=== PATIENT | female | born 1950 | race African-American/Black ===

== ENCOUNTER 2020-05-23 22:52 | Inpatient (IN) | payer MEDICARE ==
[~2020-05-23] VITALS: Ht 160 cm; Wt 115.7 kg
[2020-05-23] MEDS ORDERED: SODIUM CHLORIDE 0.9% 1,000 ML IV ONE (23:28)
[2020-05-23] MEDS ORDERED: INSULIN REGULAR (HUMULIN R) UD 100 UNITS/ML SYR SUBCUT ONE (23:30)
[2020-05-23] MEDS ORDERED: INSULIN REGULAR (HUMULIN R) 300UNITS/3ML SUBCUT STA (23:44)
[2020-05-24] VITALS (24 sets, daily range): BP systolic 128–157; BP diastolic 54–88
[2020-05-24 00:12] LABS: BG BASE EXCESS -2.9 mmol/L (-2.0-2.0); BG CARBOXYHEMOGLOBIN 1.2 % (0.5-1.5); BG FRACTION INSPIRED OXYGEN 100; BG HCO3 ACT 21.6 mmol/L (22.0-26.0); BG METHEMOGLOBIN 0.3 % (0.0-1.5); BG OXYGEN SATURATION 79.7 % (92.0-98.5); BG OXYHEMOGLOBIN 78.5 % (94.0-97.0); BG PCO2 36.9 mmHg (35.0-45.0); BG PH 7.386 (7.350-7.450); BG PO2 45.9 mmHg (75.0-100.0); BG SAMPLE SITE LEFT RADIAL; BG TOTAL HEMOGLOBIN 13.5 g/dL (12.0-18.0); BG VENT MODE MASK - NRB
[2020-05-24 00:29] LABS: BASOPHILS % 0.5 % (0.0-2.0); EOSINOPHILS % 0.1 % (0.0-5.0); HEMATOCRIT. 41.2 % (36.0-48.0); LYMPHOCYTES % 10.7 % (20.0-50.0); MEAN CORPUSCULAR HEMOGLOBIN 25.5 pg (28.0-32.0); MEAN CORPUSCULAR VOLUME 80.4 fL (81.0-99.0); MEAN PLATELET VOLUME 9.8 fl (7.4-10.4); MONOCYTES % 7.2 % (2.0-8.0); NEUTROPHILS % 81.5 % (40.0-76.0); PLATELET 110 x1000/uL (130-400); RED BLOOD CELL COUNT 5.12 mill/uL (4.2-5.4); RED CELL DISTRIBUTION WIDTH 15.3 % (11.6-14.6)
[2020-05-24 00:34] LABS: CHLORIDE 108 mEq/L (98-107)
[2020-05-24 00:49] LABS: PARTIAL THROMBOPLASTIN TIME 25.8 sec (23.4-31.0); PROTHROMBIN TIME 10.5 sec (9.6-11.0)
[2020-05-24] MEDS ORDERED: PIPERACILLIN/TAZ 3.375G PREMIX 50 ML IV ONE (01:15)
[2020-05-24] MEDS ORDERED: DEXAMETHASONE 4MG/ML 1ML VIAL IV ONE (01:15)
[2020-05-24] MEDS ORDERED: VANCOMYCIN 1 G PREMIX 200 ML IV ONE (01:15)
[2020-05-24] MEDS ORDERED: INSULIN REGULAR (HUMULIN R) UD 100 UNITS/ML SYR SUBCUT ONE (01:15)
[2020-05-24] MEDS ORDERED: ENOXAPARIN 150MG/ML SYR SUBCUT ONE (01:15)
[2020-05-24 01:32] LABS: BG BASE EXCESS -3.7 mmol/L (-2.0-2.0); BG BILEVEL POS AIRWAY PRESSURE 18/5; BG CARBOXYHEMOGLOBIN 1.1 % (0.5-1.5); BG DEOXYHEMOGLOBIN 14.5 % (0.0-5.0); BG FRACTION INSPIRED OXYGEN 100; BG HCO3 ACT 20.8 mmol/L (22.0-26.0); BG METHEMOGLOBIN 0.3 % (0.0-1.5); BG OXYGEN SATURATION 85.3 % (92.0-98.5); BG OXYHEMOGLOBIN 84.1 % (94.0-97.0); BG PO2 52.8 mmHg (75.0-100.0); BG SAMPLE SITE LEFT RADIAL; BG VENT MODE MASK - BIPAP; BG VENT RATE 14 set
[2020-05-24] MEDS ORDERED: INSULIN REGULAR (HUMULIN R) 300UNITS/3ML SUBCUT STA (01:33)
[2020-05-24] MEDS ORDERED: ONDANSETRON HCL 4MG/2ML INJ IV PRN (02:30)
[2020-05-24] MEDS ORDERED: ACETAMINOPHEN 325MG TABLET PO PRN (02:30)
[2020-05-24] MEDS ORDERED: FUROSEMIDE 40MG/4ML VIAL IVP NR (04:00)
[2020-05-24] MEDS ORDERED: AZITHROMYCIN 500 MG in DEXT 5% WATER 250 ML IV SCH (04:00)
[2020-05-24] MEDS: SODIUM CHLORIDE 0.9% INJ 3ML FLUSH IVF SCH ×3 (07:30→22:33)
[2020-05-24] MEDS: INSULIN LISPRO 100 UNITS/ML SUBCUT SCH ×4 (07:42→21:00)
[2020-05-24] MEDS: BLOOD SUGAR DIAGNOSTIC STRIP TEST SCH ×4 (07:42→21:00)
[2020-05-24] MEDS ORDERED: CEFTRIAXONE 1 G PREMIX 50 ML IV SCH (08:00)
[2020-05-24] MEDS ORDERED: INSULIN GLARGINE UD 100 UNITS/ML SYR SUBCUT SCH ×3 (10:00→22:00)
[2020-05-24] MEDS: FAMOTIDINE 20MG/2ML VIAL IV SCH ×2 (10:10→20:32)
[2020-05-24] MEDS ORDERED: IOHEXOL-350 100 ML BOTTLE ONE (11:32)
[2020-05-24] MEDS ORDERED: ENOXAPARIN 120MG/0.8ML SYR SUBCUT SCH (14:00)
[2020-05-24] MEDS: ALBUTEROL 6.7GM HFA INHALER ORI SCH ×3 (16:30→21:30)
[2020-05-24] MEDS ORDERED: ENOXAPARIN 150MG/ML SYR SUBCUT SCH (18:00)
[2020-05-24] MEDS ORDERED: DOPAMINE 800MG PREMIX (DOUBLE) 250 ML IV PRN (21:30)
[2020-05-25] VITALS (95 sets, daily range): BP systolic 79–185; BP diastolic 27–76
[2020-05-25] MEDS: ENOXAPARIN 120MG/0.8ML SYR SUBCUT SCH ×3 (00:51→21:40)
[2020-05-25] MEDS: ALBUTEROL 6.7GM HFA INHALER ORI SCH ×4 (04:30→20:50)
[2020-05-25] MEDS: SODIUM CHLORIDE 0.9% INJ 3ML FLUSH IVF SCH ×3 (05:12→21:01)
[2020-05-25] MEDS: BLOOD SUGAR DIAGNOSTIC STRIP TEST SCH ×4 (05:51→21:21)
[2020-05-25] MEDS: INSULIN LISPRO 100 UNITS/ML SUBCUT SCH ×4 (06:09→21:42)
[2020-05-25] MEDS: AZITHROMYCIN 500 MG in DEXT 5% WATER 250 ML IV SCH (08:13)
[2020-05-25] MEDS: FAMOTIDINE 20MG/2ML VIAL IV SCH ×2 (08:13→21:39)
[2020-05-25] MEDS: DEXAMETHASONE 4MG TABLET PO SCH (08:14)
[2020-05-25] MEDS: CEFTRIAXONE 1 G PREMIX 50 ML IV SCH (08:14)
[2020-05-25] MEDS ORDERED: ENOXAPARIN 40MG/0.4ML SYR SUBCUT SCH (09:00)
[2020-05-25] MEDS ORDERED: INSULIN GLARGINE UD 100 UNITS/ML SYR SUBCUT SCH ×4 (10:00→22:00)
[2020-05-25 10:45] LABS: PHOSPHORUS 1.9 mg/dL (2.5-4.9)
[2020-05-25 10:48] LABS: BASOPHILS % 0.3 % (0.0-2.0); LYMPHOCYTES % 8.9 % (20.0-50.0); MEAN CORPUSCULAR HEMOGLOBIN 25.3 pg (28.0-32.0); MEAN CORPUSCULAR VOLUME 80.2 fL (81.0-99.0); NEUTROPHILS % 84.8 % (40.0-76.0); PLATELET 157 x1000/uL (130-400); RED BLOOD CELL COUNT 5.96 mill/uL (4.2-5.4)
[2020-05-25 10:49] LABS: BG CARBOXYHEMOGLOBIN 0.6 % (0.5-1.5); BG DEOXYHEMOGLOBIN 8.3 % (0.0-5.0); BG FRACTION INSPIRED OXYGEN 100; BG HCO3 ACT 19.9 mmol/L (22.0-26.0); BG METHEMOGLOBIN 0.3 % (0.0-1.5); BG OXYGEN SATURATION 91.6 % (92.0-98.5); BG OXYHEMOGLOBIN 90.8 % (94.0-97.0); BG PCO2 29.5 mmHg (35.0-45.0); BG PH 7.446 (7.350-7.450); BG PO2 63.8 mmHg (75.0-100.0); BG SAMPLE SITE RIGHT RADIAL; BG TOTAL HEMOGLOBIN 13.6 g/dL (12.0-18.0); BG VENT MODE MASK - NRB
[2020-05-25 10:57] LABS: HEMATOCRIT. 47.8 % (36.0-48.0); HEMOGLOBIN. 15.1 g/dL (12.0-16.0)
[2020-05-25 10:58] LABS: CHLORIDE 113 mEq/L (98-107)
[2020-05-25] MEDS ORDERED: REMDESIVIR 200 MG in SODIUM CHLORIDE 0.9% 250 ML IV NR (15:00)
[2020-05-25] MEDS ORDERED: ENOXAPARIN 120MG/0.8ML SYR SUBCUT SCH (16:18)
[2020-05-25] MEDS ORDERED: AMLO10TA80 MT (17:13)
[2020-05-25] MEDS ORDERED: CARV3.1242 MT (17:15)
[2020-05-25] MEDS ORDERED: LISI40TA4 MT (17:16)
[2020-05-25] MEDS ORDERED: HYDR-4134 MT (17:17)
[2020-05-25] MEDS ORDERED: INSU100V3 SUBCUT ×2 (17:44→17:45)
[2020-05-25] MEDS ORDERED: POTASSIUM PHOS,M-BASIC-D-BASIC 20 MMOL in DEXT 5% WATER 243.3333 ML IV SCH (21:00)
[2020-05-26] VITALS (96 sets, daily range): BP systolic 95–166; BP diastolic 16–96
[2020-05-26] MEDS: ALBUTEROL 6.7GM HFA INHALER ORI SCH ×4 (00:55→17:37)
[2020-05-26 05:20] LABS: BASOPHILS % 0.8 % (0.0-2.0); HEMATOCRIT. 44.8 % (36.0-48.0); LYMPHOCYTES % 7.6 % (20.0-50.0); MEAN CORPUSCULAR VOLUME 79.8 fL (81.0-99.0); MEAN PLATELET VOLUME 10.1 fl (7.4-10.4); MONOCYTES % 7.8 % (2.0-8.0); NEUTROPHILS % 83.8 % (40.0-76.0); PLATELET 154 x1000/uL (130-400); RED BLOOD CELL COUNT 5.62 mill/uL (4.2-5.4); RED CELL DISTRIBUTION WIDTH 14.9 % (11.6-14.6)
[2020-05-26] MEDS: SODIUM CHLORIDE 0.9% INJ 3ML FLUSH IVF SCH ×3 (05:27→22:20)
[2020-05-26 05:29] LABS: CHLORIDE 114 mEq/L (98-107)
[2020-05-26 05:37] LABS: PHOSPHORUS 2.9 mg/dL (2.5-4.9)
[2020-05-26] MEDS: BLOOD SUGAR DIAGNOSTIC STRIP TEST SCH ×4 (05:56→21:47)
[2020-05-26] MEDS: INSULIN LISPRO 100 UNITS/ML SUBCUT SCH ×4 (06:14→21:53)
[2020-05-26] MEDS ORDERED: LIDOCAINE HCL 1% 20ML VIAL (Pyxis) INJ ONE (08:01)
[2020-05-26] MEDS: FAMOTIDINE 20MG/2ML VIAL IV SCH ×2 (08:10→21:12)
[2020-05-26] MEDS: DEXAMETHASONE 4MG TABLET PO SCH (08:10)
[2020-05-26] MEDS: AZITHROMYCIN 500 MG in DEXT 5% WATER 250 ML IV SCH (08:10)
[2020-05-26] MEDS: CEFTRIAXONE 1 G PREMIX 50 ML IV SCH (08:11)
[2020-05-26] MEDS: ENOXAPARIN 120MG/0.8ML SYR SUBCUT SCH ×2 (08:12→21:13)
[2020-05-26] MEDS: INSULIN GLARGINE UD 100 UNITS/ML SYR SUBCUT SCH ×2 (10:45→21:54)
[2020-05-26] MEDS: REMDESIVIR 100 MG in SODIUM CHLORIDE 0.9% 250 ML IV SCH (14:05)
[2020-05-27] VITALS (53 sets, daily range): BP systolic 80–157; BP diastolic 34–123
[2020-05-27] MEDS: ALBUTEROL 6.7GM HFA INHALER ORI SCH ×6 (01:30→19:00)
[2020-05-27 05:57] LABS: BASOPHILS % 0.2 % (0.0-2.0); HEMATOCRIT. 46.2 % (36.0-48.0); HEMOGLOBIN. 14.5 g/dL (12.0-16.0); LYMPHOCYTES % 7.6 % (20.0-50.0); MEAN CORPUSCULAR HEMOGLOBIN 25.1 pg (28.0-32.0); MEAN CORPUSCULAR VOLUME 80.1 fL (81.0-99.0); MEAN PLATELET VOLUME 9.9 fl (7.4-10.4); MONOCYTES % 10.2 % (2.0-8.0); PLATELET 161 x1000/uL (130-400); RED BLOOD CELL COUNT 5.77 mill/uL (4.2-5.4); RED CELL DISTRIBUTION WIDTH 15.1 % (11.6-14.6)
[2020-05-27 06:04] LABS: CHLORIDE 111 mEq/L (98-107)
[2020-05-27] MEDS: BLOOD SUGAR DIAGNOSTIC STRIP TEST SCH ×4 (06:05→20:51)
[2020-05-27] MEDS: SODIUM CHLORIDE 0.9% INJ 3ML FLUSH IVF SCH ×3 (06:05→20:51)
[2020-05-27] MEDS: INSULIN LISPRO 100 UNITS/ML SUBCUT SCH ×5 (06:10→21:42)
[2020-05-27] MEDS: AZITHROMYCIN 500 MG in DEXT 5% WATER 250 ML IV SCH (08:12)
[2020-05-27] MEDS: DEXAMETHASONE 4MG TABLET PO SCH (08:13)
[2020-05-27] MEDS: FAMOTIDINE 20MG/2ML VIAL IV SCH ×2 (08:13→20:50)
[2020-05-27] MEDS: CEFTRIAXONE 1 G PREMIX 50 ML IV SCH (08:13)
[2020-05-27] MEDS: ENOXAPARIN 120MG/0.8ML SYR SUBCUT SCH ×2 (08:14→20:51)
[2020-05-27] MEDS: INSULIN GLARGINE UD 100 UNITS/ML SYR SUBCUT SCH ×2 (10:29→21:42)
[2020-05-27] MEDS ORDERED: DIPHENHYDRAMINE 50MG/ML VIAL IV PRN (16:45)
[2020-05-27] MEDS: ACETAMINOPHEN 325MG TABLET PO PRN (17:08)
[2020-05-27] MEDS: REMDESIVIR 100 MG in SODIUM CHLORIDE 0.9% 250 ML IV SCH (20:50)
[2020-05-28] VITALS: BP 109/79
[2020-05-28] MEDS: ALBUTEROL 6.7GM HFA INHALER ORI SCH ×6 (00:14→23:05)
[2020-05-28 04:00] VITALS: BP 143/61
[2020-05-28] MEDS: SODIUM CHLORIDE 0.9% INJ 3ML FLUSH IVF SCH ×3 (06:01→21:25)
[2020-05-28] MEDS: DEXTROSE 50% WATER 50ML SYRINGE IV PRN (06:16)
[2020-05-28 06:29] LABS: HEMATOCRIT. 44.2 % (36.0-48.0); MEAN CORPUSCULAR VOLUME 79.2 fL (81.0-99.0); MEAN PLATELET VOLUME 9.8 fl (7.4-10.4); PLATELET 129 x1000/uL (130-400); RED BLOOD CELL COUNT 5.57 mill/uL (4.2-5.4); RED CELL DISTRIBUTION WIDTH 14.8 % (11.6-14.6)
[2020-05-28 06:36] LABS: CHLORIDE 113 mEq/L (98-107)
[2020-05-28] MEDS: BLOOD SUGAR DIAGNOSTIC STRIP TEST SCH ×4 (07:40→21:26)
[2020-05-28 08:00] VITALS: BP 97/64
[2020-05-28] MEDS ORDERED: CEFTRIAXONE 1,000 MG in DEXTROSE 5% WATER 50 ML IV SCH (09:00)
[2020-05-28] MEDS: AZITHROMYCIN 500 MG in DEXT 5% WATER 250 ML IV SCH (09:20)
[2020-05-28] MEDS: INSULIN LISPRO 100 UNITS/ML SUBCUT SCH ×4 (09:23→21:25)
[2020-05-28] MEDS: FAMOTIDINE 20MG/2ML VIAL IV SCH (09:24)
[2020-05-28] MEDS: DEXAMETHASONE 4MG TABLET PO SCH (09:24)
[2020-05-28] MEDS: ENOXAPARIN 120MG/0.8ML SYR SUBCUT SCH ×2 (09:25→21:24)
[2020-05-28] MEDS: INSULIN GLARGINE UD 100 UNITS/ML SYR SUBCUT SCH ×2 (11:35→21:25)
[2020-05-28 12:00] VITALS: BP 148/62
[2020-05-28 13:35] LABS: BG BASE EXCESS 0.2 mmol/L (-2.0-2.0); BG CARBOXYHEMOGLOBIN 0.9 % (0.5-1.5); BG DEOXYHEMOGLOBIN 11.4 % (0.0-5.0); BG FRACTION INSPIRED OXYGEN 100; BG HCO3 ACT 22.2 mmol/L (22.0-26.0); BG METHEMOGLOBIN 0.3 % (0.0-1.5); BG OXYGEN SATURATION 88.5 % (92.0-98.5); BG OXYHEMOGLOBIN 87.4 % (94.0-97.0); BG PCO2 28.8 mmHg (35.0-45.0); BG PH 7.504 (7.350-7.450); BG PO2 53.4 mmHg (75.0-100.0); BG SAMPLE SITE RIGHT RADIAL; BG TOTAL HEMOGLOBIN 13.9 g/dL (12.0-18.0); BG VENT MODE MASK - NRB
[2020-05-28] MEDS: REMDESIVIR 100 MG in SODIUM CHLORIDE 0.9% 250 ML IV SCH (14:15)
[2020-05-28 14:18] LABS: PLATELET ESTIMATE SLIGHTLY DECREASED
[2020-05-28 16:00] VITALS: BP 141/65
[2020-05-28 20:00] VITALS: BP 138/53
[2020-05-28] MEDS: FAMOTIDINE 20MG TABLET PO SCH (21:24)
[2020-05-29] VITALS (60 sets, daily range): BP systolic 55–194; BP diastolic 23–140
[2020-05-29] MEDS: ALBUTEROL 6.7GM HFA INHALER ORI SCH ×5 (00:20→20:10)
[2020-05-29] MEDS: SODIUM CHLORIDE 0.9% INJ 3ML FLUSH IVF SCH ×3 (06:24→22:40)
[2020-05-29] MEDS: DEXTROSE 50% WATER 50ML SYRINGE IV PRN (06:32)
[2020-05-29] MEDS: BLOOD SUGAR DIAGNOSTIC STRIP TEST SCH ×4 (07:31→21:00)
[2020-05-29] MEDS: DEXAMETHASONE 4MG TABLET PO SCH (09:27)
[2020-05-29] MEDS: FAMOTIDINE 20MG TABLET PO SCH ×2 (09:27→22:39)
[2020-05-29] MEDS: INSULIN LISPRO 100 UNITS/ML SUBCUT SCH ×4 (09:27→21:00)
[2020-05-29] MEDS: PROPOFOL 10MG/ML 100ML 100 ML IV PRN ×3 (11:33→15:51)
[2020-05-29] MEDS: INSULIN GLARGINE UD 100 UNITS/ML SYR SUBCUT SCH ×2 (11:49→22:49)
[2020-05-29] MEDS ORDERED: NOREPINEPHRINE 16 MG in DEXT 5% WATER 234 ML IV PRN (12:00)
[2020-05-29] MEDS: ENOXAPARIN 120MG/0.8ML SYR SUBCUT SCH ×2 (12:09→22:48)
[2020-05-29] MEDS: NOREPINEPHRINE 32 MG in DEXT 5% WATER 468 ML IV PRN (12:16)
[2020-05-29 12:34] LABS: BG BASE EXCESS -2.6 mmol/L (-2.0-2.0); BG CARBOXYHEMOGLOBIN 0.8 % (0.5-1.5); BG FRACTION INSPIRED OXYGEN 100; BG HCO3 ACT 22.6 mmol/L (22.0-26.0); BG OXYHEMOGLOBIN 98.2 % (94.0-97.0); BG PCO2 40.7 mmHg (35.0-45.0); BG PH 7.362 (7.350-7.450); BG PO2 290.6 mmHg (75.0-100.0); BG SAMPLE SITE RIGHT RADIAL; BG TIDAL VOLUME(mL) 500 mL; BG TOTAL HEMOGLOBIN 12.9 g/dL (12.0-18.0); BG VENT MODE VENT - A/C; BG VENT RATE 16 set
[2020-05-29] MEDS: REMDESIVIR 100 MG in SODIUM CHLORIDE 0.9% 250 ML IV SCH (13:59)
[2020-05-29] MEDS: CEFEPIME 1,000 MG in DEXTROSE 5% WATER 50 ML IV SCH (15:07)
[2020-05-29] MEDS ORDERED: VANCOMYCIN 2,000 MG in DEXT 5% WATER 500 ML IV NR (16:00)
[2020-05-29] MEDS: FENTANYL CITRATE/PF 1,000 MCG in SODIUM CHLORIDE 0.9% 80 ML IV PRN (16:32)
[2020-05-29] MEDS: MIDAZOLAM HCL 100 MG in DEXT 5% WATER 80 ML IV PRN (16:33)
[2020-05-30] VITALS (95 sets, daily range): BP systolic 84–187; BP diastolic 51–89
[2020-05-30] MEDS: CEFEPIME 1,000 MG in DEXTROSE 5% WATER 50 ML IV SCH ×2 (03:00→15:04)
[2020-05-30] MEDS: FENTANYL CITRATE/PF 1,000 MCG in SODIUM CHLORIDE 0.9% 80 ML IV PRN (05:09)
[2020-05-30] MEDS: SODIUM CHLORIDE 0.9% INJ 3ML FLUSH IVF SCH ×3 (05:18→22:14)
[2020-05-30 05:57] LABS: CHLORIDE 109 mEq/L (98-107)
[2020-05-30] MEDS: MIDAZOLAM HCL 100 MG in DEXT 5% WATER 80 ML IV PRN (06:00)
[2020-05-30] MEDS ORDERED: VANCOMYCIN 1250MG in DEXTROSE 5% WATER 250ML IV SCH (06:00)
[2020-05-30 06:03] LABS: HEMATOCRIT. 39.2 % (36.0-48.0); HEMOGLOBIN. 12.5 g/dL (12.0-16.0); MEAN CORPUSCULAR HEMOGLOBIN 25.4 pg (28.0-32.0); MEAN CORPUSCULAR VOLUME 79.4 fL (81.0-99.0); MEAN PLATELET VOLUME 9.7 fl (7.4-10.4); PLATELET 107 x1000/uL (130-400); RED BLOOD CELL COUNT 4.93 mill/uL (4.2-5.4); RED CELL DISTRIBUTION WIDTH 14.8 % (11.6-14.6)
[2020-05-30] MEDS: BLOOD SUGAR DIAGNOSTIC STRIP TEST SCH ×3 (06:09→16:30)
[2020-05-30] MEDS: INSULIN LISPRO 100 UNITS/ML SUBCUT SCH ×3 (06:14→17:45)
[2020-05-30] MEDS: ALBUTEROL 6.7GM HFA INHALER ORI SCH (08:35)
[2020-05-30] MEDS: ENOXAPARIN 120MG/0.8ML SYR SUBCUT SCH ×2 (08:50→22:13)
[2020-05-30] MEDS: DEXAMETHASONE 4MG TABLET PO SCH (08:50)
[2020-05-30] MEDS: FAMOTIDINE 20MG TABLET PO SCH ×2 (08:51→22:13)
[2020-05-30] MEDS: INSULIN GLARGINE UD 100 UNITS/ML SYR SUBCUT SCH ×2 (10:41→22:14)
[2020-05-30 10:43] LABS: BG BASE EXCESS -0.9 mmol/L (-2.0-2.0); BG CARBOXYHEMOGLOBIN 0.2 % (0.5-1.5); BG FRACTION INSPIRED OXYGEN 100; BG HCO3 ACT 23.2 mmol/L (22.0-26.0); BG METHEMOGLOBIN 0.3 % (0.0-1.5); BG OXYHEMOGLOBIN 98.5 % (94.0-97.0); BG PCO2 36.8 mmHg (35.0-45.0); BG PH 7.418 (7.350-7.450); BG PO2 370.6 mmHg (75.0-100.0); BG SAMPLE SITE RIGHT RADIAL; BG TIDAL VOLUME(mL) 500 mL; BG TOTAL HEMOGLOBIN 13.4 g/dL (12.0-18.0); BG VENT MODE VENT - A/C; BG VENT RATE 18 set
[2020-05-30] MEDS ORDERED: IPRATROPIUM/ALBUTEROL 0.5-3(2.5)MG/3ML NEB HHN PRN (11:00)
[2020-05-30 13:11] LABS: PLATELET ESTIMATE DECREASED
[2020-05-30] MEDS: IPRATROPIUM/ALBUTEROL 0.5-3(2.5)MG/3ML NEB HHN SCH ×3 (16:30→23:44)
[2020-05-30] MEDS: DOPAMINE 800MG PREMIX (DOUBLE) 250 ML IV PRN (16:58)
[2020-05-30] MEDS: VANCOMYCIN 1250MG in DEXTROSE 5% WATER 250ML IV SCH (19:16)
[2020-05-31] VITALS (87 sets, daily range): BP systolic 109–181; BP diastolic 45–84
[2020-05-31] MEDS: FENTANYL CITRATE/PF 1,000 MCG in SODIUM CHLORIDE 0.9% 80 ML IV PRN (00:13)
[2020-05-31] MEDS: MIDAZOLAM HCL 100 MG in DEXT 5% WATER 80 ML IV PRN (00:14)
[2020-05-31] MEDS: BLOOD SUGAR DIAGNOSTIC STRIP TEST SCH ×4 (00:14→17:32)
[2020-05-31] MEDS: INSULIN LISPRO 100 UNITS/ML SUBCUT SCH ×5 (00:49→23:21)
[2020-05-31] MEDS: CEFEPIME 1,000 MG in DEXTROSE 5% WATER 50 ML IV SCH ×2 (03:07→15:25)
[2020-05-31] MEDS ORDERED: ATROPINE SULFATE 1MG/10ML SYR IV ONE (03:15)
[2020-05-31 05:25] LABS: CHLORIDE 107 mEq/L (98-107); HEMATOCRIT. 41.3 % (36.0-48.0); HEMOGLOBIN. 13.3 g/dL (12.0-16.0); MEAN CORPUSCULAR HEMOGLOBIN 25.4 pg (28.0-32.0); MEAN CORPUSCULAR VOLUME 78.4 fL (81.0-99.0); MEAN PLATELET VOLUME 10.2 fl (7.4-10.4); PLATELET 112 x1000/uL (130-400); RED BLOOD CELL COUNT 5.26 mill/uL (4.2-5.4); RED CELL DISTRIBUTION WIDTH 14.7 % (11.6-14.6)
[2020-05-31 05:41] LABS: VANCOMYCIN TROUGH 20.4 ug/mL (5.0-10.0)
[2020-05-31] MEDS: SODIUM CHLORIDE 0.9% INJ 3ML FLUSH IVF SCH ×3 (06:06→21:01)
[2020-05-31] MEDS: VANCOMYCIN 1250MG in DEXTROSE 5% WATER 250ML IV SCH (06:29)
[2020-05-31 08:47] LABS: BG BASE EXCESS -0.5 mmol/L (-2.0-2.0); BG CARBOXYHEMOGLOBIN 0.4 % (0.5-1.5); BG DEOXYHEMOGLOBIN 1.6 % (0.0-5.0); BG FRACTION INSPIRED OXYGEN 60; BG HCO3 ACT 22.7 mmol/L (22.0-26.0); BG METHEMOGLOBIN 0.3 % (0.0-1.5); BG OXYGEN SATURATION 98.4 % (92.0-98.5); BG OXYHEMOGLOBIN 97.7 % (94.0-97.0); BG PCO2 33.4 mmHg (35.0-45.0); BG PH 7.451 (7.350-7.450); BG PO2 144.7 mmHg (75.0-100.0); BG SAMPLE SITE RIGHT RADIAL; BG TIDAL VOLUME(mL) 500 mL; BG TOTAL HEMOGLOBIN 13.9 g/dL (12.0-18.0); BG VENT MODE VENT - A/C; BG VENT RATE 18 set
[2020-05-31] MEDS: DEXAMETHASONE 10 MG/ML VIAL IV SCH (08:58)
[2020-05-31] MEDS: FAMOTIDINE 20MG TABLET PO SCH ×2 (08:59→21:01)
[2020-05-31] MEDS: ENOXAPARIN 120MG/0.8ML SYR SUBCUT SCH ×2 (08:59→21:02)
[2020-05-31] MEDS: IPRATROPIUM/ALBUTEROL 0.5-3(2.5)MG/3ML NEB HHN SCH ×4 (09:29→20:50)
[2020-05-31] MEDS: INSULIN GLARGINE UD 100 UNITS/ML SYR SUBCUT SCH ×2 (10:10→21:01)
[2020-05-31 14:01] LABS: PLATELET ESTIMATE DECREASED
[2020-05-31] MEDS: AMLODIPINE 2.5MG TABLET NG SCH ×2 (15:25→21:01)
[2020-05-31] MEDS: VANCOMYCIN 1 G PREMIX 200 ML IV SCH (17:51)
[2020-05-31 20:42] LABS: T4 FREE 1.15 ng/dL (0.76-1.46)
[2020-06-01] VITALS (97 sets, daily range): BP systolic 97–175; BP diastolic 28–77
[2020-06-01] MEDS: BLOOD SUGAR DIAGNOSTIC STRIP TEST SCH ×5 (00:17→23:15)
[2020-06-01] MEDS: FENTANYL CITRATE/PF 1,000 MCG in SODIUM CHLORIDE 0.9% 80 ML IV PRN ×2 (00:18→19:47)
[2020-06-01] MEDS: IPRATROPIUM/ALBUTEROL 0.5-3(2.5)MG/3ML NEB HHN SCH ×6 (00:25→20:31)
[2020-06-01] MEDS: CEFEPIME 1,000 MG in DEXTROSE 5% WATER 50 ML IV SCH ×2 (02:08→15:37)
[2020-06-01] MEDS: VANCOMYCIN 1 G PREMIX 200 ML IV SCH ×2 (05:00→17:46)
[2020-06-01] MEDS: INSULIN LISPRO 100 UNITS/ML SUBCUT SCH ×4 (05:01→23:15)
[2020-06-01] MEDS: SODIUM CHLORIDE 0.9% INJ 3ML FLUSH IVF SCH ×3 (05:01→21:41)
[2020-06-01] MEDS: FAMOTIDINE 20MG TABLET PO SCH ×2 (08:28→21:42)
[2020-06-01] MEDS: DEXAMETHASONE 10 MG/ML VIAL IV SCH (08:29)
[2020-06-01] MEDS: AMLODIPINE 2.5MG TABLET NG SCH ×2 (08:29→21:41)
[2020-06-01] MEDS: ENOXAPARIN 120MG/0.8ML SYR SUBCUT SCH ×2 (08:29→21:41)
[2020-06-01 09:31] LABS: BG BASE EXCESS -4.6 mmol/L (-2.0-2.0); BG CARBOXYHEMOGLOBIN 0.6 % (0.5-1.5); BG DEOXYHEMOGLOBIN 5.5 % (0.0-5.0); BG FRACTION INSPIRED OXYGEN 60; BG HCO3 ACT 21.1 mmol/L (22.0-26.0); BG OXYGEN SATURATION 94.5 % (92.0-98.5); BG OXYHEMOGLOBIN 93.9 % (94.0-97.0); BG PCO2 41.2 mmHg (35.0-45.0); BG PH 7.328 (7.350-7.450); BG SAMPLE SITE RIGHT RADIAL; BG TIDAL VOLUME(mL) 500 mL; BG VENT MODE VENT - A/C; BG VENT RATE 12 set
[2020-06-01] MEDS: LORAZEPAM 2MG/ML CPJ IV PRN ×3 (11:26→22:18)
[2020-06-01] MEDS: INSULIN GLARGINE UD 100 UNITS/ML SYR SUBCUT SCH ×2 (11:28→21:41)
[2020-06-01] MEDS: DOPAMINE 800MG PREMIX (DOUBLE) 250 ML IV PRN (21:58)
[2020-06-02] VITALS (89 sets, daily range): BP systolic 113–176; BP diastolic 42–101
[2020-06-02] MEDS: IPRATROPIUM/ALBUTEROL 0.5-3(2.5)MG/3ML NEB HHN SCH ×6 (00:25→21:06)
[2020-06-02] MEDS: CEFEPIME 1,000 MG in DEXTROSE 5% WATER 50 ML IV SCH ×2 (02:07→15:55)
[2020-06-02] MEDS: LORAZEPAM 2MG/ML CPJ IV PRN ×4 (04:31→20:20)
[2020-06-02] MEDS: SODIUM CHLORIDE 0.9% INJ 3ML FLUSH IVF SCH ×3 (05:25→20:21)
[2020-06-02] MEDS: VANCOMYCIN 1 G PREMIX 200 ML IV SCH (05:25)
[2020-06-02] MEDS: BLOOD SUGAR DIAGNOSTIC STRIP TEST SCH ×4 (05:25→23:45)
[2020-06-02] MEDS: INSULIN LISPRO 100 UNITS/ML SUBCUT SCH ×4 (05:28→23:49)
[2020-06-02 06:09] LABS: CHLORIDE 107 mEq/L (98-107)
[2020-06-02] MEDS: DEXAMETHASONE 10 MG/ML VIAL IV SCH (08:40)
[2020-06-02] MEDS: FAMOTIDINE 20MG TABLET PO SCH ×2 (08:41→20:20)
[2020-06-02] MEDS: AMLODIPINE 2.5MG TABLET NG SCH ×2 (08:41→20:20)
[2020-06-02 09:14] LABS: BG BASE EXCESS -1.3 mmol/L (-2.0-2.0); BG CARBOXYHEMOGLOBIN 0.3 % (0.5-1.5); BG DEOXYHEMOGLOBIN 2.1 % (0.0-5.0); BG FRACTION INSPIRED OXYGEN 60; BG HCO3 ACT 22.7 mmol/L (22.0-26.0); BG METHEMOGLOBIN 0.3 % (0.0-1.5); BG OXYGEN SATURATION 97.9 % (92.0-98.5); BG OXYHEMOGLOBIN 97.3 % (94.0-97.0); BG PCO2 36.1 mmHg (35.0-45.0); BG PH 7.416 (7.350-7.450); BG PO2 119.4 mmHg (75.0-100.0); BG SAMPLE SITE RIGHT RADIAL; BG TIDAL VOLUME(mL) 500 mL; BG VENT MODE VENT - A/C; BG VENT RATE 18 set
[2020-06-02] MEDS: ENOXAPARIN 120MG/0.8ML SYR SUBCUT SCH ×2 (09:58→20:20)
[2020-06-02] MEDS: INSULIN GLARGINE UD 100 UNITS/ML SYR SUBCUT SCH ×2 (09:59→21:20)
[2020-06-02 10:06] LABS: HEMATOCRIT. 41.4 % (36.0-48.0); HEMOGLOBIN. 13.1 g/dL (12.0-16.0); MEAN CORPUSCULAR HEMOGLOBIN 25.1 pg (28.0-32.0); MEAN CORPUSCULAR VOLUME 79.7 fL (81.0-99.0); MEAN PLATELET VOLUME 10.6 fl (7.4-10.4); PLATELET 144 x1000/uL (130-400); RED CELL DISTRIBUTION WIDTH 15.2 % (11.6-14.6)
[2020-06-02 11:48] LABS: PLATELET ESTIMATE NORMAL
[2020-06-03] VITALS (44 sets, daily range): BP systolic 111–148; BP diastolic 40–75
[2020-06-03] MEDS: IPRATROPIUM/ALBUTEROL 0.5-3(2.5)MG/3ML NEB HHN SCH ×5 (00:33→19:50)
[2020-06-03] MEDS: LORAZEPAM 2MG/ML CPJ IV PRN ×2 (02:53→21:09)
[2020-06-03] MEDS: CEFEPIME 1,000 MG in DEXTROSE 5% WATER 50 ML IV SCH ×2 (02:53→15:00)
[2020-06-03] MEDS: FENTANYL CITRATE/PF 1,000 MCG in SODIUM CHLORIDE 0.9% 80 ML IV PRN (05:25)
[2020-06-03] MEDS: SODIUM CHLORIDE 0.9% INJ 3ML FLUSH IVF SCH ×3 (05:54→20:39)
[2020-06-03] MEDS: BLOOD SUGAR DIAGNOSTIC STRIP TEST SCH ×4 (05:54→23:16)
[2020-06-03] MEDS: INSULIN LISPRO 100 UNITS/ML SUBCUT SCH ×3 (06:07→18:00)
[2020-06-03] MEDS: FAMOTIDINE 20MG TABLET PO SCH ×2 (09:00→20:39)
[2020-06-03] MEDS: ENOXAPARIN 120MG/0.8ML SYR SUBCUT SCH ×3 (09:00→20:39)
[2020-06-03] MEDS: DEXAMETHASONE 10 MG/ML VIAL IV SCH (09:00)
[2020-06-03] MEDS: AMLODIPINE 2.5MG TABLET NG SCH ×2 (09:00→20:39)
[2020-06-03] MEDS: INSULIN GLARGINE UD 100 UNITS/ML SYR SUBCUT SCH ×2 (10:00→22:00)
[2020-06-03 17:24] LABS: HEMOGLOBIN. 11.7 g/dL (12.0-16.0); MEAN CORPUSCULAR HEMOGLOBIN 24.7 pg (28.0-32.0); MEAN CORPUSCULAR VOLUME 78.1 fL (81.0-99.0); MEAN PLATELET VOLUME 9.5 fl (7.4-10.4); PLATELET 115 x1000/uL (130-400); RED BLOOD CELL COUNT 4.74 mill/uL (4.2-5.4)
[2020-06-03 18:10] LABS: PLATELET ESTIMATE DECREASED
[2020-06-03] MEDS: DEXTROSE 50% WATER 50ML SYRINGE IV PRN (23:20)
[2020-06-04] VITALS (47 sets, daily range): BP systolic 88–150; BP diastolic 36–67
[2020-06-04] MEDS: LORAZEPAM 2MG/ML CPJ IV PRN ×2 (00:04→18:15)
[2020-06-04] MEDS: IPRATROPIUM/ALBUTEROL 0.5-3(2.5)MG/3ML NEB HHN SCH ×6 (00:15→20:30)
[2020-06-04 05:38] LABS: HEMATOCRIT. 37.2 % (36.0-48.0); HEMOGLOBIN. 11.8 g/dL (12.0-16.0); MEAN CORPUSCULAR HEMOGLOBIN 25.2 pg (28.0-32.0); MEAN CORPUSCULAR VOLUME 79.5 fL (81.0-99.0); MEAN PLATELET VOLUME 10.4 fl (7.4-10.4); PLATELET 125 x1000/uL (130-400); RED BLOOD CELL COUNT 4.68 mill/uL (4.2-5.4); RED CELL DISTRIBUTION WIDTH 15.2 % (11.6-14.6)
[2020-06-04] MEDS: BLOOD SUGAR DIAGNOSTIC STRIP TEST SCH ×3 (05:41→18:15)
[2020-06-04 05:48] LABS: CHLORIDE 103 mEq/L (98-107)
[2020-06-04] MEDS: INSULIN LISPRO 100 UNITS/ML SUBCUT SCH ×4 (06:00→18:19)
[2020-06-04] MEDS: SODIUM CHLORIDE 0.9% INJ 3ML FLUSH IVF SCH ×3 (06:00→21:49)
[2020-06-04] MEDS: ENOXAPARIN 120MG/0.8ML SYR SUBCUT SCH ×2 (09:00→21:48)
[2020-06-04] MEDS: AMLODIPINE 2.5MG TABLET NG SCH ×2 (09:00→21:44)
[2020-06-04] MEDS: DEXAMETHASONE 10 MG/ML VIAL IV SCH (09:00)
[2020-06-04] MEDS: FAMOTIDINE 20MG TABLET PO SCH ×2 (09:00→21:46)
[2020-06-04 09:03] LABS: BG BASE EXCESS 6.4 mmol/L (-2.0-2.0); BG CARBOXYHEMOGLOBIN 0.6 % (0.5-1.5); BG DEOXYHEMOGLOBIN 2.9 % (0.0-5.0); BG FRACTION INSPIRED OXYGEN 60; BG HCO3 ACT 30.4 mmol/L (22.0-26.0); BG METHEMOGLOBIN 0.3 % (0.0-1.5); BG OXYGEN SATURATION 97.1 % (92.0-98.5); BG OXYHEMOGLOBIN 96.2 % (94.0-97.0); BG PCO2 41.2 mmHg (35.0-45.0); BG PH 7.486 (7.350-7.450); BG PO2 97.5 mmHg (75.0-100.0); BG SAMPLE SITE LEFT RADIAL; BG TIDAL VOLUME(mL) 500 mL; BG TOTAL HEMOGLOBIN 11.6 g/dL (12.0-18.0); BG VENT MODE VENT - A/C; BG VENT RATE 18 set
[2020-06-04] MEDS: INSULIN GLARGINE UD 100 UNITS/ML SYR SUBCUT SCH ×2 (10:00→21:47)
[2020-06-04 11:25] LABS: PLATELET ESTIMATE NORMAL
[2020-06-04] MEDS: MEROPENEM 1,000 MG in SODIUM CHLORIDE 0.9% 100 ML IV SCH ×2 (15:30→21:46)
[2020-06-04] MEDS ORDERED: VANCOMYCIN 2,000 MG in DEXT 5% WATER 500 ML IV SCH (16:00)
[2020-06-04 16:24] LABS: CLARITY URINE TURBID (CLEAR); COLOR URINE RED (YELLOW); KETONES URINE NEGATIVE (NEGATIVE); LEUKOCYTE ESTERASE URINE 1+ (NEGATIVE); NITRITE URINE NEGATIVE (NEGATIVE); OCCULT BLOOD URINE 3+ (NEGATIVE); PROTEIN URINE 1+ (NEGATIVE); SPECIFIC GRAVITY URINE 1.032 (1.005-1.030)
[2020-06-04] MEDS: FENTANYL CITRATE/PF 1,000 MCG in SODIUM CHLORIDE 0.9% 80 ML IV PRN (18:00)
[2020-06-05] VITALS (95 sets, daily range): BP systolic 113–180; BP diastolic 42–70
[2020-06-05] MEDS: BLOOD SUGAR DIAGNOSTIC STRIP TEST SCH ×5 (00:18→23:15)
[2020-06-05] MEDS: IPRATROPIUM/ALBUTEROL 0.5-3(2.5)MG/3ML NEB HHN SCH ×5 (00:20→20:55)
[2020-06-05] MEDS: INSULIN LISPRO 100 UNITS/ML SUBCUT SCH ×5 (00:29→23:15)
[2020-06-05] MEDS: LORAZEPAM 2MG/ML CPJ IV PRN (05:30)
[2020-06-05 05:49] LABS: HEMATOCRIT. 34.4 % (36.0-48.0); HEMOGLOBIN. 11.1 g/dL (12.0-16.0); MEAN CORPUSCULAR HEMOGLOBIN 25.5 pg (28.0-32.0); MEAN CORPUSCULAR VOLUME 78.7 fL (81.0-99.0); MEAN PLATELET VOLUME 10.6 fl (7.4-10.4); PLATELET 125 x1000/uL (130-400); RED BLOOD CELL COUNT 4.36 mill/uL (4.2-5.4); RED CELL DISTRIBUTION WIDTH 15.2 % (11.6-14.6)
[2020-06-05] MEDS: SODIUM CHLORIDE 0.9% INJ 3ML FLUSH IVF SCH ×3 (06:00→22:34)
[2020-06-05] MEDS: VANCOMYCIN 1 G PREMIX 200 ML IV SCH ×2 (07:05→18:56)
[2020-06-05] MEDS: MEROPENEM 1,000 MG in SODIUM CHLORIDE 0.9% 100 ML IV SCH ×3 (07:06→22:34)
[2020-06-05] MEDS: DEXAMETHASONE 10 MG/ML VIAL IV SCH (09:00)
[2020-06-05] MEDS: FAMOTIDINE 20MG TABLET PO SCH ×2 (09:00→20:39)
[2020-06-05] MEDS: AMLODIPINE 2.5MG TABLET NG SCH ×2 (09:00→20:39)
[2020-06-05] MEDS: ENOXAPARIN 120MG/0.8ML SYR SUBCUT SCH ×2 (09:00→20:40)
[2020-06-05 09:07] LABS: NUCLEATED RED BLOOD CELLS 1 /100 WBC; PLATELET ESTIMATE SLIGHTLY DECREASED
[2020-06-05 09:38] LABS: BG BASE EXCESS 6.1 mmol/L (-2.0-2.0); BG CARBOXYHEMOGLOBIN 0.9 % (0.5-1.5); BG DEOXYHEMOGLOBIN 9.7 % (0.0-5.0); BG FRACTION INSPIRED OXYGEN 100; BG HCO3 ACT 31.9 mmol/L (22.0-26.0); BG METHEMOGLOBIN 0.3 % (0.0-1.5); BG OXYGEN SATURATION 90.2 % (92.0-98.5); BG OXYHEMOGLOBIN 89.1 % (94.0-97.0); BG PCO2 52.2 mmHg (35.0-45.0); BG PH 7.404 (7.350-7.450); BG PO2 59.4 mmHg (75.0-100.0); BG SAMPLE SITE RIGHT RADIAL; BG TIDAL VOLUME(mL) 500 mL; BG VENT MODE VENT- PRVC; BG VENT RATE 14 set
[2020-06-05] MEDS: INSULIN GLARGINE UD 100 UNITS/ML SYR SUBCUT SCH ×2 (11:00→23:15)
[2020-06-05] MEDS ORDERED: DEXAMETHASONE 4MG/ML 1ML VIAL IV SCH (11:07)
[2020-06-05] MEDS ORDERED: SODIUM CHLORIDE 0.9% 500 ML IV ONE (11:30)
[2020-06-05] MEDS ORDERED: LACTULOSE 20G/30ML UDC PO NR (11:30)
[2020-06-05 13:00] LABS: *COCAINE SCREEN URINE NEGATIVE (NEGATIVE); METHADONE URINE SCREEN NEGATIVE (NEGATIVE); OPIATES URINE SCREEN NEGATIVE (NEGATIVE)
[2020-06-05 13:01] LABS: *AMPHETAMINES SCREEN URINE NEGATIVE (NEGATIVE); *BARBITURATES SCREEN URINE NEGATIVE (NEGATIVE); *BENZODIAZEPINES SCREEN URINE PRESUMTIVE POSITIVE (NEGATIVE); CANNABINOID URINE SCREEN NEGATIVE (NEGATIVE); PHENCYCLIDINE URINE SCREEN NEGATIVE (NEGATIVE)
[2020-06-05] MEDS: FENTANYL CITRATE/PF 1,000 MCG in SODIUM CHLORIDE 0.9% 80 ML IV PRN (19:50)
[2020-06-06] VITALS (92 sets, daily range): BP systolic 98–157; BP diastolic 42–71
[2020-06-06] MEDS: IPRATROPIUM/ALBUTEROL 0.5-3(2.5)MG/3ML NEB HHN SCH ×6 (00:10→20:42)
[2020-06-06] MEDS: FENTANYL CITRATE/PF 1,000 MCG in SODIUM CHLORIDE 0.9% 80 ML IV PRN ×2 (01:26→17:49)
[2020-06-06] MEDS: MEROPENEM 1,000 MG in SODIUM CHLORIDE 0.9% 100 ML IV SCH ×3 (05:20→20:52)
[2020-06-06] MEDS: DEXTROSE 50% WATER 50ML SYRINGE IV PRN (05:45)
[2020-06-06] MEDS: INSULIN LISPRO 100 UNITS/ML SUBCUT SCH ×3 (06:00→17:45)
[2020-06-06] MEDS: VANCOMYCIN 1 G PREMIX 200 ML IV SCH (06:25)
[2020-06-06] MEDS: BLOOD SUGAR DIAGNOSTIC STRIP TEST SCH ×3 (06:25→17:45)
[2020-06-06] MEDS: SODIUM CHLORIDE 0.9% INJ 3ML FLUSH IVF SCH ×3 (06:25→20:53)
[2020-06-06 09:25] LABS: BG BASE EXCESS 6.4 mmol/L (-2.0-2.0); BG CARBOXYHEMOGLOBIN 1.2 % (0.5-1.5); BG DEOXYHEMOGLOBIN 10.5 % (0.0-5.0); BG FRACTION INSPIRED OXYGEN 100; BG HCO3 ACT 32.3 mmol/L (22.0-26.0); BG METHEMOGLOBIN 0.3 % (0.0-1.5); BG OXYGEN SATURATION 89.3 % (92.0-98.5); BG PCO2 53.3 mmHg (35.0-45.0); BG PH 7.401 (7.350-7.450); BG PO2 58.3 mmHg (75.0-100.0); BG SAMPLE SITE LEFT RADIAL; BG TIDAL VOLUME(mL) 500 mL; BG VENT MODE VVENT- PRVC; BG VENT RATE 14 set
[2020-06-06] MEDS: FAMOTIDINE 20MG TABLET PO SCH ×2 (09:46→20:52)
[2020-06-06] MEDS: AMLODIPINE 2.5MG TABLET NG SCH ×2 (09:46→20:52)
[2020-06-06] MEDS: ENOXAPARIN 120MG/0.8ML SYR SUBCUT SCH ×2 (09:47→20:52)
[2020-06-06] MEDS: INSULIN GLARGINE UD 100 UNITS/ML SYR SUBCUT SCH (09:50)
[2020-06-06] MEDS ORDERED: VANCOMYCIN 1 G PREMIX 200 ML IV SCH (14:00)
[2020-06-06] MEDS ORDERED: LORAZEPAM 2MG/ML CPJ IV PRN (16:59)
[2020-06-06] MEDS: DOCUSATE SODIUM SUGAR FREE 100MG/10ML UDC NG SCH (17:45)
[2020-06-06] MEDS ORDERED: INSULIN GLARGINE UD 100 UNITS/ML SYR SUBCUT SCH (22:00)
[2020-06-07] VITALS (120 sets, daily range): BP systolic 42–144; BP diastolic 21–68
[2020-06-07] MEDS: IPRATROPIUM/ALBUTEROL 0.5-3(2.5)MG/3ML NEB HHN SCH ×6 (00:23→21:20)
[2020-06-07] MEDS: BLOOD SUGAR DIAGNOSTIC STRIP TEST SCH ×5 (00:25→23:46)
[2020-06-07] MEDS: ACETAMINOPHEN 325MG TABLET PO PRN (01:57)
[2020-06-07] MEDS: SODIUM CHLORIDE 0.9% INJ 3ML FLUSH IVF SCH ×3 (04:54→21:51)
[2020-06-07 05:11] LABS: HEMATOCRIT. 30.8 % (36.0-48.0); HEMOGLOBIN. 9.7 g/dL (12.0-16.0); MEAN CORPUSCULAR HEMOGLOBIN 25.1 pg (28.0-32.0); MEAN CORPUSCULAR VOLUME 79.4 fL (81.0-99.0); MEAN PLATELET VOLUME 11.2 fl (7.4-10.4); PLATELET 107 x1000/uL (130-400); RED BLOOD CELL COUNT 3.87 mill/uL (4.2-5.4)
[2020-06-07] MEDS: MEROPENEM 1,000 MG in SODIUM CHLORIDE 0.9% 100 ML IV SCH ×3 (05:18→21:51)
[2020-06-07 05:23] LABS: CHLORIDE 96 mEq/L (98-107)
[2020-06-07] MEDS: INSULIN LISPRO 100 UNITS/ML SUBCUT SCH ×5 (06:00→23:46)
[2020-06-07] MEDS: LORAZEPAM 2MG/ML CPJ IV NR ×2 (09:24→09:37)
[2020-06-07] MEDS ORDERED: MIDAZOLAM HCL 100 MG in DEXT 5% WATER 80 ML IV PRN (09:30)
[2020-06-07 09:42] LABS: BG BASE EXCESS 11.7 mmol/L (-2.0-2.0); BG CARBOXYHEMOGLOBIN 1.5 % (0.5-1.5); BG DEOXYHEMOGLOBIN 17.2 % (0.0-5.0); BG FRACTION INSPIRED OXYGEN 100; BG HCO3 ACT 37.4 mmol/L (22.0-26.0); BG METHEMOGLOBIN 0.3 % (0.0-1.5); BG OXYGEN SATURATION 82.5 % (92.0-98.5); BG PCO2 54.8 mmHg (35.0-45.0); BG PH 7.452 (7.350-7.450); BG PO2 44.8 mmHg (75.0-100.0); BG SAMPLE SITE RIGHT RADIAL; BG TIDAL VOLUME(mL) 500 mL; BG TOTAL HEMOGLOBIN 10.6 g/dL (12.0-18.0); BG VENT MODE VENT - A/C; BG VENT RATE 14 set
[2020-06-07] MEDS: INSULIN GLARGINE UD 100 UNITS/ML SYR SUBCUT SCH ×2 (10:00→22:03)
[2020-06-07] MEDS ORDERED: NOREPINEPHRINE 8 MG in DEXT 5% WATER 242 ML IV PRN (10:00)
[2020-06-07] MEDS: DOCUSATE SODIUM SUGAR FREE 100MG/10ML UDC NG SCH ×2 (10:34→18:40)
[2020-06-07] MEDS: ENOXAPARIN 120MG/0.8ML SYR SUBCUT SCH ×2 (10:38→21:00)
[2020-06-07] MEDS: FAMOTIDINE 20MG TABLET PO SCH ×2 (10:39→21:15)
[2020-06-07] MEDS: AMLODIPINE 2.5MG TABLET NG SCH ×2 (10:39→20:50)
[2020-06-07] MEDS: LORAZEPAM 2MG/ML CPJ IV PRN (11:09)
[2020-06-07] MEDS ORDERED: NA PHOS,M-B/NA PHOS,DI-BA ENEMA 118ML PR NR (11:15)
[2020-06-07] MEDS ORDERED: LACTULOSE 20G/30ML UDC PO NR (11:15)
[2020-06-07] MEDS: FENTANYL CITRATE/PF 1,000 MCG in SODIUM CHLORIDE 0.9% 80 ML IV PRN (11:30)
[2020-06-07] MEDS: DEXTROSE 50% WATER 50ML SYRINGE IV PRN (11:42)
[2020-06-07] MEDS: LORAZEPAM 20 MG in DEXT 5% WATER 90 ML IV PRN (11:48)
[2020-06-07 14:02] LABS: PLATELET ESTIMATE DECREASED
[2020-06-07] MEDS: FENTANYL CITRATE/PF 2,500 MCG in SODIUM CHLORIDE 0.9% 200 ML IV PRN ×2 (15:04→23:19)
[2020-06-07] MEDS: DEXAMETHASONE 4MG/ML 1ML VIAL IV SCH ×2 (18:40→23:46)
[2020-06-08] VITALS (93 sets, daily range): BP systolic 47–134; BP diastolic 30–68
[2020-06-08] MEDS: IPRATROPIUM/ALBUTEROL 0.5-3(2.5)MG/3ML NEB HHN SCH ×6 (01:10→20:15)
[2020-06-08] MEDS: DEXAMETHASONE 4MG/ML 1ML VIAL IV SCH ×4 (05:37→23:45)
[2020-06-08] MEDS: SODIUM CHLORIDE 0.9% INJ 3ML FLUSH IVF SCH ×3 (05:37→21:36)
[2020-06-08] MEDS: MEROPENEM 1,000 MG in SODIUM CHLORIDE 0.9% 100 ML IV SCH ×3 (05:43→21:36)
[2020-06-08] MEDS: BLOOD SUGAR DIAGNOSTIC STRIP TEST SCH ×3 (06:11→17:20)
[2020-06-08] MEDS: INSULIN LISPRO 100 UNITS/ML SUBCUT SCH ×3 (06:18→17:29)
[2020-06-08] MEDS: FENTANYL CITRATE/PF 2,500 MCG in SODIUM CHLORIDE 0.9% 200 ML IV PRN ×3 (07:14→23:16)
[2020-06-08] MEDS: ENOXAPARIN 120MG/0.8ML SYR SUBCUT SCH ×2 (09:00→21:00)
[2020-06-08 09:19] LABS: BG BASE EXCESS 8.8 mmol/L (-2.0-2.0); BG CARBOXYHEMOGLOBIN 1.4 % (0.5-1.5); BG DEOXYHEMOGLOBIN 16.5 % (0.0-5.0); BG FRACTION INSPIRED OXYGEN 100; BG METHEMOGLOBIN 0.3 % (0.0-1.5); BG OXYGEN SATURATION 83.2 % (92.0-98.5); BG OXYHEMOGLOBIN 81.8 % (94.0-97.0); BG PCO2 50.4 mmHg (35.0-45.0); BG PH 7.447 (7.350-7.450); BG PO2 47.8 mmHg (75.0-100.0); BG SAMPLE SITE RIGHT RADIAL; BG TOTAL HEMOGLOBIN 10.3 g/dL (12.0-18.0); BG VENT MODE VENT - PCV; BG VENT RATE 22 set
[2020-06-08] MEDS: DOCUSATE SODIUM SUGAR FREE 100MG/10ML UDC NG SCH ×2 (09:40→17:29)
[2020-06-08] MEDS: FAMOTIDINE 20MG TABLET PO SCH ×2 (09:40→20:45)
[2020-06-08] MEDS: AMLODIPINE 2.5MG TABLET NG SCH ×2 (09:41→20:45)
[2020-06-08] MEDS: INSULIN GLARGINE UD 100 UNITS/ML SYR SUBCUT SCH ×2 (10:06→21:52)
[2020-06-08 16:19] LABS: BG BASE EXCESS 8.7 mmol/L (-2.0-2.0); BG CARBOXYHEMOGLOBIN 1.5 % (0.5-1.5); BG FRACTION INSPIRED OXYGEN 100; BG HCO3 ACT 35.3 mmol/L (22.0-26.0); BG METHEMOGLOBIN 0.3 % (0.0-1.5); BG OXYGEN SATURATION 80.7 % (92.0-98.5); BG OXYHEMOGLOBIN 79.2 % (94.0-97.0); BG PCO2 59.1 mmHg (35.0-45.0); BG PH 7.394 (7.350-7.450); BG PO2 46.7 mmHg (75.0-100.0); BG SAMPLE SITE RIGHT RADIAL; BG TOTAL HEMOGLOBIN 11.7 g/dL (12.0-18.0); BG VENT MODE PCV; BG VENT RATE 22 set
[2020-06-09] VITALS (95 sets, daily range): BP systolic 92–159; BP diastolic 23–95
[2020-06-09] MEDS: BLOOD SUGAR DIAGNOSTIC STRIP TEST SCH ×5 (00:18→23:20)
[2020-06-09] MEDS: INSULIN LISPRO 100 UNITS/ML SUBCUT SCH ×5 (00:30→23:20)
[2020-06-09] MEDS: IPRATROPIUM/ALBUTEROL 0.5-3(2.5)MG/3ML NEB HHN SCH ×6 (00:30→20:02)
[2020-06-09 01:07] LABS: BG BASE EXCESS 6.6 mmol/L (-2.0-2.0); BG CARBOXYHEMOGLOBIN 1.5 % (0.5-1.5); BG DEOXYHEMOGLOBIN 30.8 % (0.0-5.0); BG FRACTION INSPIRED OXYGEN 100; BG HCO3 ACT 33.1 mmol/L (22.0-26.0); BG METHEMOGLOBIN 0.3 % (0.0-1.5); BG OXYGEN SATURATION 68.6 % (92.0-98.5); BG OXYHEMOGLOBIN 67.4 % (94.0-97.0); BG PCO2 56.9 mmHg (35.0-45.0); BG PH 7.383 (7.350-7.450); BG SAMPLE SITE RIGHT RADIAL; BG TOTAL HEMOGLOBIN 11.9 g/dL (12.0-18.0); BG VENT MODE VENT - PCV; BG VENT RATE 24 set
[2020-06-09 05:10] LABS: HEMATOCRIT. 32.2 % (36.0-48.0); HEMOGLOBIN. 10.2 g/dL (12.0-16.0); MEAN CORPUSCULAR HEMOGLOBIN 25.2 pg (28.0-32.0); MEAN CORPUSCULAR VOLUME 79.8 fL (81.0-99.0); MEAN PLATELET VOLUME 10.6 fl (7.4-10.4); PLATELET 123 x1000/uL (130-400); RED BLOOD CELL COUNT 4.04 mill/uL (4.2-5.4); RED CELL DISTRIBUTION WIDTH 15.3 % (11.6-14.6)
[2020-06-09 05:14] LABS: CHLORIDE 100 mEq/L (98-107)
[2020-06-09] MEDS: MEROPENEM 1,000 MG in SODIUM CHLORIDE 0.9% 100 ML IV SCH ×3 (05:26→21:34)
[2020-06-09] MEDS: SODIUM CHLORIDE 0.9% INJ 3ML FLUSH IVF SCH ×3 (05:47→21:35)
[2020-06-09] MEDS: DEXAMETHASONE 4MG/ML 1ML VIAL IV SCH ×3 (05:54→20:01)
[2020-06-09 07:44] LABS: PLATELET ESTIMATE SLIGHTLY DECREASED
[2020-06-09] MEDS: ENOXAPARIN 120MG/0.8ML SYR SUBCUT SCH ×2 (09:33→20:01)
[2020-06-09] MEDS: FAMOTIDINE 20MG TABLET PO SCH ×2 (09:33→20:00)
[2020-06-09] MEDS: AMLODIPINE 2.5MG TABLET NG SCH ×2 (09:33→20:00)
[2020-06-09] MEDS: DOCUSATE SODIUM SUGAR FREE 100MG/10ML UDC NG SCH ×2 (09:33→17:59)
[2020-06-09] MEDS: INSULIN GLARGINE UD 100 UNITS/ML SYR SUBCUT SCH ×2 (09:34→23:19)
[2020-06-09 09:52] LABS: BG BASE EXCESS 7.3 mmol/L (-2.0-2.0); BG CARBOXYHEMOGLOBIN 1.7 % (0.5-1.5); BG DEOXYHEMOGLOBIN 11.8 % (0.0-5.0); BG FRACTION INSPIRED OXYGEN 100; BG HCO3 ACT 32.7 mmol/L (22.0-26.0); BG METHEMOGLOBIN 0.3 % (0.0-1.5); BG OXYHEMOGLOBIN 86.2 % (94.0-97.0); BG PCO2 49.9 mmHg (35.0-45.0); BG PH 7.434 (7.350-7.450); BG SAMPLE SITE RIGHT RADIAL; BG TOTAL HEMOGLOBIN 10.9 g/dL (12.0-18.0); BG VENT MODE PCV; BG VENT RATE 26 set
[2020-06-09] MEDS ORDERED: SODIUM POLYSTYRENE SULFONATE 15 G/60 ML BOT PO NR (11:00)
[2020-06-09] MEDS: METOCLOPRAMIDE HCL 10MG/2ML VIAL IV SCH ×3 (13:08→23:21)
[2020-06-09] MEDS: LORAZEPAM 20 MG in DEXT 5% WATER 90 ML IV PRN (19:39)
[2020-06-10] VITALS (95 sets, daily range): BP systolic 86–163; BP diastolic 37–110
[2020-06-10] MEDS: IPRATROPIUM/ALBUTEROL 0.5-3(2.5)MG/3ML NEB HHN SCH ×6 (00:35→20:56)
[2020-06-10] MEDS: FENTANYL CITRATE/PF 2,500 MCG in SODIUM CHLORIDE 0.9% 200 ML IV PRN (03:24)
[2020-06-10] MEDS: LORAZEPAM 20 MG in DEXT 5% WATER 90 ML IV PRN (03:24)
[2020-06-10] MEDS: METOCLOPRAMIDE HCL 10MG/2ML VIAL IV SCH ×4 (05:05→23:56)
[2020-06-10] MEDS: SODIUM CHLORIDE 0.9% INJ 3ML FLUSH IVF SCH ×3 (05:05→22:00)
[2020-06-10] MEDS: INSULIN LISPRO 100 UNITS/ML SUBCUT SCH ×4 (05:47→23:56)
[2020-06-10] MEDS: BLOOD SUGAR DIAGNOSTIC STRIP TEST SCH ×4 (05:48→23:56)
[2020-06-10 06:39] LABS: CHLORIDE 100 mEq/L (98-107); HEMATOCRIT. 30.4 % (36.0-48.0); HEMOGLOBIN. 9.4 g/dL (12.0-16.0); MEAN CORPUSCULAR HEMOGLOBIN 25.1 pg (28.0-32.0); MEAN CORPUSCULAR VOLUME 80.7 fL (81.0-99.0); MEAN PLATELET VOLUME 11.8 fl (7.4-10.4); PLATELET 128 x1000/uL (130-400); RED BLOOD CELL COUNT 3.76 mill/uL (4.2-5.4); RED CELL DISTRIBUTION WIDTH 15.2 % (11.6-14.6)
[2020-06-10] MEDS: AMLODIPINE 2.5MG TABLET NG SCH ×2 (09:00→20:46)
[2020-06-10 09:50] LABS: BG BASE EXCESS 8.8 mmol/L (-2.0-2.0); BG CARBOXYHEMOGLOBIN 0.2 % (0.5-1.5); BG FRACTION INSPIRED OXYGEN 100; BG HCO3 ACT 34.7 mmol/L (22.0-26.0); BG METHEMOGLOBIN 0.3 % (0.0-1.5); BG OXYGEN SATURATION 88.9 % (92.0-98.5); BG OXYHEMOGLOBIN 88.5 % (94.0-97.0); BG PCO2 55.3 mmHg (35.0-45.0); BG PH 7.416 (7.350-7.450); BG PO2 57.1 mmHg (75.0-100.0); BG SAMPLE SITE LEFT RADIAL; BG TOTAL HEMOGLOBIN 10.1 g/dL (12.0-18.0); BG VENT MODE VENT - PCV; BG VENT RATE 26 set
[2020-06-10] MEDS: ENOXAPARIN 120MG/0.8ML SYR SUBCUT SCH ×2 (09:57→20:45)
[2020-06-10] MEDS: DOCUSATE SODIUM SUGAR FREE 100MG/10ML UDC NG SCH ×2 (09:57→17:00)
[2020-06-10] MEDS: FAMOTIDINE 20MG TABLET PO SCH ×2 (09:57→20:44)
[2020-06-10] MEDS: DEXAMETHASONE 4MG/ML 1ML VIAL IV SCH ×2 (09:57→20:43)
[2020-06-10] MEDS: INSULIN GLARGINE UD 100 UNITS/ML SYR SUBCUT SCH ×2 (10:07→21:47)
[2020-06-10 14:59] LABS: NUCLEATED RED BLOOD CELLS 6 /100 WBC; PLATELET ESTIMATE NORMAL
[2020-06-11] VITALS (54 sets, daily range): BP systolic 85–165; BP diastolic 36–95
[2020-06-11] MEDS: IPRATROPIUM/ALBUTEROL 0.5-3(2.5)MG/3ML NEB HHN SCH ×6 (00:24→20:45)
[2020-06-11 05:52] LABS: CHLORIDE 103 mEq/L (98-107)
[2020-06-11] MEDS: INSULIN LISPRO 100 UNITS/ML SUBCUT SCH ×4 (06:00→23:58)
[2020-06-11] MEDS: METOCLOPRAMIDE HCL 10MG/2ML VIAL IV SCH ×4 (06:11→23:58)
[2020-06-11] MEDS: SODIUM CHLORIDE 0.9% INJ 3ML FLUSH IVF SCH ×3 (06:11→21:09)
[2020-06-11] MEDS: BLOOD SUGAR DIAGNOSTIC STRIP TEST SCH ×4 (06:11→23:58)
[2020-06-11 08:36] LABS: BG BASE EXCESS 11.1 mmol/L (-2.0-2.0); BG CARBOXYHEMOGLOBIN 0.2 % (0.5-1.5); BG DEOXYHEMOGLOBIN 11.5 % (0.0-5.0); BG FRACTION INSPIRED OXYGEN 100; BG HCO3 ACT 36.6 mmol/L (22.0-26.0); BG METHEMOGLOBIN 0.3 % (0.0-1.5); BG OXYGEN SATURATION 88.4 % (92.0-98.5); BG PCO2 53.5 mmHg (35.0-45.0); BG PH 7.453 (7.350-7.450); BG PO2 55.8 mmHg (75.0-100.0); BG SAMPLE SITE RIGHT RADIAL; BG TOTAL HEMOGLOBIN 10.1 g/dL (12.0-18.0); BG VENT MODE VENT - PCV; BG VENT RATE 26 set
[2020-06-11] MEDS: FAMOTIDINE 20MG TABLET PO SCH ×2 (08:59→21:09)
[2020-06-11] MEDS: ENOXAPARIN 120MG/0.8ML SYR SUBCUT SCH ×2 (08:59→21:09)
[2020-06-11] MEDS: DEXAMETHASONE 4MG/ML 1ML VIAL IV SCH (08:59)
[2020-06-11] MEDS: DOCUSATE SODIUM SUGAR FREE 100MG/10ML UDC NG SCH ×2 (08:59→17:26)
[2020-06-11] MEDS: AMLODIPINE 2.5MG TABLET NG SCH ×2 (10:05→21:09)
[2020-06-11] MEDS ORDERED: LORAZEPAM 2MG/ML CPJ IV PRN (10:30)
[2020-06-11] MEDS: INSULIN GLARGINE UD 100 UNITS/ML SYR SUBCUT SCH ×2 (10:32→21:10)
[2020-06-11] MEDS: LORAZEPAM 2MG/ML CPJ IV PRN (10:35)
[2020-06-11] MEDS: FENTANYL CITRATE/PF 2,500 MCG in SODIUM CHLORIDE 0.9% 200 ML IV PRN (10:54)
[2020-06-11] MEDS ORDERED: SODIUM POLYSTYRENE SULFONATE 15 G/60 ML BOT NG NR (12:00)
[2020-06-11] MEDS: DEXTROSE 50% WATER 50ML SYRINGE IV PRN (21:10)
[2020-06-11] MEDS: ACETAMINOPHEN 325MG TABLET PO PRN (21:11)
[2020-06-12] VITALS (102 sets, daily range): BP systolic 54–187; BP diastolic 32–129
[2020-06-12] MEDS: IPRATROPIUM/ALBUTEROL 0.5-3(2.5)MG/3ML NEB HHN SCH ×6 (00:15→21:00)
[2020-06-12] MEDS: LORAZEPAM 20 MG in DEXT 5% WATER 90 ML IV PRN ×3 (03:50→20:34)
[2020-06-12] MEDS: METOCLOPRAMIDE HCL 10MG/2ML VIAL IV SCH ×4 (05:16→23:25)
[2020-06-12] MEDS: INSULIN LISPRO 100 UNITS/ML SUBCUT SCH ×4 (06:00→23:43)
[2020-06-12] MEDS: SODIUM CHLORIDE 0.9% INJ 3ML FLUSH IVF SCH ×3 (06:09→21:23)
[2020-06-12] MEDS: BLOOD SUGAR DIAGNOSTIC STRIP TEST SCH ×4 (06:09→23:43)
[2020-06-12] MEDS: DOCUSATE SODIUM SUGAR FREE 100MG/10ML UDC NG SCH ×2 (08:45→17:02)
[2020-06-12] MEDS: FAMOTIDINE 20MG TABLET PO SCH ×2 (08:45→20:15)
[2020-06-12] MEDS: AMLODIPINE 2.5MG TABLET NG SCH ×2 (08:45→20:15)
[2020-06-12] MEDS: DEXAMETHASONE 4MG/ML 1ML VIAL IV SCH (08:45)
[2020-06-12] MEDS: ENOXAPARIN 120MG/0.8ML SYR SUBCUT SCH (09:00)
[2020-06-12 09:32] LABS: BG CARBOXYHEMOGLOBIN 1.6 % (0.5-1.5); BG DEOXYHEMOGLOBIN 5.5 % (0.0-5.0); BG FRACTION INSPIRED OXYGEN 100; BG HCO3 ACT 33.9 mmol/L (22.0-26.0); BG OXYGEN SATURATION 94.4 % (92.0-98.5); BG OXYHEMOGLOBIN 92.9 % (94.0-97.0); BG PCO2 43.4 mmHg (35.0-45.0); BG PH 7.511 (7.350-7.450); BG PO2 76.3 mmHg (75.0-100.0); BG SAMPLE SITE RIGHT RADIAL; BG TOTAL HEMOGLOBIN 8.1 g/dL (12.0-18.0); BG VENT MODE VENT - PCV; BG VENT RATE 26 set
[2020-06-12 09:52] LABS: HEMATOCRIT. 30.8 % (36.0-48.0); HEMOGLOBIN. 9.7 g/dL (12.0-16.0); MEAN CORPUSCULAR HEMOGLOBIN 25.5 pg (28.0-32.0); MEAN CORPUSCULAR VOLUME 81.3 fL (81.0-99.0); MEAN PLATELET VOLUME 10.4 fl (7.4-10.4); PLATELET 82 x1000/uL (130-400); RED BLOOD CELL COUNT 3.79 mill/uL (4.2-5.4); RED CELL DISTRIBUTION WIDTH 15.4 % (11.6-14.6)
[2020-06-12] MEDS: INSULIN GLARGINE UD 100 UNITS/ML SYR SUBCUT SCH (10:00)
[2020-06-12 10:02] LABS: CHLORIDE 104 mEq/L (98-107)
[2020-06-12] MEDS ORDERED: MAGNESIUM HYDROXIDE 400MG/5ML 30ML UDC NG PRN (12:15)
[2020-06-12] MEDS: FENTANYL CITRATE/PF 2,500 MCG in SODIUM CHLORIDE 0.9% 200 ML IV PRN ×2 (12:22→20:35)
[2020-06-12] MEDS: NOREPINEPHRINE 32 MG in DEXT 5% WATER 468 ML IV PRN (14:18)
[2020-06-12] MEDS: PHENYLEPHRINE 80 MG in DEXT 5% WATER 492 ML IV PRN (22:16)
[2020-06-12] MEDS: DEXTROSE 50% WATER 50ML SYRINGE IV PRN (23:25)
[2020-06-13] VITALS (40 sets, daily range): BP systolic 37–148; BP diastolic 14–78
[2020-06-13] MEDS: IPRATROPIUM/ALBUTEROL 0.5-3(2.5)MG/3ML NEB HHN SCH ×4 (00:31→13:39)
[2020-06-13] MEDS ORDERED: DOPAMINE 800MG PREMIX (DOUBLE) 250 ML IV PRN (05:02)
[2020-06-13] MEDS: METOCLOPRAMIDE HCL 10MG/2ML VIAL IV SCH (05:16)
[2020-06-13] MEDS: SODIUM CHLORIDE 0.9% INJ 3ML FLUSH IVF SCH (05:16)
[2020-06-13] MEDS: BLOOD SUGAR DIAGNOSTIC STRIP TEST SCH ×2 (05:17→13:55)
[2020-06-13] MEDS: INSULIN LISPRO 100 UNITS/ML SUBCUT SCH ×2 (05:17→13:55)
[2020-06-13 05:32] LABS: HEMATOCRIT. 36.2 % (36.0-48.0); HEMOGLOBIN. 10.6 g/dL (12.0-16.0); MEAN CORPUSCULAR HEMOGLOBIN 25.3 pg (28.0-32.0); MEAN CORPUSCULAR VOLUME 85.9 fL (81.0-99.0); MEAN PLATELET VOLUME 11.8 fl (7.4-10.4); PLATELET 116 x1000/uL (130-400); RED BLOOD CELL COUNT 4.22 mill/uL (4.2-5.4); RED CELL DISTRIBUTION WIDTH 16.5 % (11.6-14.6)
[2020-06-13] MEDS: PHENYLEPHRINE 80 MG in DEXT 5% WATER 492 ML IV PRN (06:35)
[2020-06-13 08:34] LABS: BG BASE EXCESS -14.9 mmol/L (-2.0-2.0); BG CARBOXYHEMOGLOBIN 1.2 % (0.5-1.5); BG METHEMOGLOBIN 0.3 % (0.0-1.5); BG OXYGEN SATURATION 91.9 % (92.0-98.5); BG OXYHEMOGLOBIN 90.5 % (94.0-97.0); BG PCO2 53.3 mmHg (35.0-45.0); BG PH 7.067 (7.350-7.450); BG PIP 26 cmH2O; BG PO2 87.6 mmHg (75.0-100.0); BG SAMPLE SITE RIGHT RADIAL; BG TOTAL HEMOGLOBIN 11.2 g/dL (12.0-18.0); BG VENT MODE VENT - PCV; BG VENT RATE 26 set
[2020-06-13] MEDS ORDERED: SODIUM BICARBONATE 8.4% 1 MEQ/ML 50ML SYR IV NR (08:40)
[2020-06-13] MEDS: VASOPRESSIN 10 UNIT in SODIUM CHLORIDE 0.9% 99.5 ML IV PRN ×2 (08:52→11:01)
[2020-06-13] MEDS: AMLODIPINE 2.5MG TABLET NG SCH (09:00)
[2020-06-13] MEDS ORDERED: ENOXAPARIN 30MG/0.3ML SYR SUBCUT SCH (09:00)
[2020-06-13] MEDS: DEXAMETHASONE 4MG/ML 1ML VIAL IV SCH (09:20)
[2020-06-13] MEDS: FAMOTIDINE 20MG TABLET PO SCH (09:20)
[2020-06-13] MEDS: DOCUSATE SODIUM SUGAR FREE 100MG/10ML UDC NG SCH (09:20)
[2020-06-13] MEDS: NOREPINEPHRINE 32 MG in DEXT 5% WATER 468 ML IV PRN (10:27)
[2020-06-13 11:01] LABS: NUCLEATED RED BLOOD CELLS 1 /100 WBC
[2020-06-13 11:02] LABS: PLATELET ESTIMATE DECREASED
[2020-06-13 13:10] LABS: BG BASE EXCESS -15.3 mmol/L (-2.0-2.0); BG CARBOXYHEMOGLOBIN 0.7 % (0.5-1.5); BG DEOXYHEMOGLOBIN 9.5 % (0.0-5.0); BG HCO3 ACT 13.7 mmol/L (22.0-26.0); BG METHEMOGLOBIN 1.1 % (0.0-1.5); BG OXYGEN SATURATION 90.3 % (92.0-98.5); BG OXYHEMOGLOBIN 88.7 % (94.0-97.0); BG PCO2 45.3 mmHg (35.0-45.0); BG PH 7.099 (7.350-7.450); BG SAMPLE SITE RIGHT RADIAL; BG TOTAL HEMOGLOBIN 10.5 g/dL (12.0-18.0); BG VENT MODE VENT - PCV; BG VENT RATE 30 set
[2020-06-13] MEDS ORDERED: DEXTROSE 50% WATER 50ML VIAL IV ONE (14:01)
[2020-06-13] MEDS ORDERED: EPINEPHRINE 0.1MG/ML (1:10,000) 10ML SYR ONE (14:01)
[2020-06-13] MEDS ORDERED: CALCIUM CHLORIDE 1GM/10ML SYR IV ONE (14:01)
[2020-06-13] MEDS ORDERED: SODIUM BICARBONATE 8.4% MEQ/ML 50ML VIAL IV ONE (14:01)
[2020-06-13] MEDS ORDERED: SODIUM BICARBONATE 8.4% 1 MEQ/ML 50ML SYR IV ONE (14:11)
[2020-06-13] MEDS ORDERED: SODIUM CHLORIDE 0.9% 500 ML IV ONE (14:15)
[2020-06-13] MEDS ORDERED: DEXTROSE 50% WATER 50ML SYRINGE IV ONE (14:17)
[2020-06-13] MEDS ORDERED: CEFEPIME 1,000 MG in DEXTROSE 5% WATER 50 ML IV SCH (15:00)
[2020-06-13] MEDS ORDERED: SODIUM BICARBONATE 150 MEQ in DEXTROSE 5% WATER 1,000 ML IV SCH (15:30)
[2020-06-13] MEDS ORDERED: VANCOMYCIN 2,000 MG in DEXT 5% WATER 500 ML IV NR (16:00)
[2020-06-13] MEDS ORDERED: AMIKACIN SULFATE 650 MG in SODIUM CHLORIDE 0.9% 100 ML IV NR (17:00)
[2020-06-13 17:35] LABS: NUCLEATED RED BLOOD CELLS 4 /100 WBC; PLATELET ESTIMATE DECREASED
[2020-06-13] MEDS ORDERED: AMIODARONE HCL 200 MG TABLET NG SCH (21:00)
[2020-06-14] MEDS ORDERED: VANCOMYCIN 1250MG in DEXTROSE 5% WATER 250ML IV SCH (04:00)
[2020-06-14] MEDS ORDERED: AMIKACIN 500MG in SODIUM CHLORIDE 0.9% 100ML IV SCH (06:00)
== END 2020-06-13 14:20 | disposition expired | DRG 870 ==
LOC: ER 22:52 → MICUSO 05-24 01:24 → EDBEDREQ 05-24 01:52 → EDBEDREQTM 05-24 01:52 → ENRESERV 05-24 16:57 → 7WST 05-27 13:01 → MICUSO 05-29 10:03
PROVIDERS: ADMIT Internal Medicine; ATTEND Internal Medicine
PROC: 5A09357 Assistance with Respiratory Ventilation, Less than 24 Consecutive Hours, Continuous Positive Airway Pressure (ICD-10-PCS; 2020-05-24)
PROC: 05HY33Z Insertion of Infusion Device into Upper Vein, Percutaneous Approach (ICD-10-PCS; 2020-05-26)
PROC: B54MZZA Ultrasonography of Right Upper Extremity Veins, Guidance (ICD-10-PCS; 2020-05-26)
PROC: 5A1955Z Respiratory Ventilation, Greater than 96 Consecutive Hours (ICD-10-PCS; principal; 2020-05-29)
PROC: 0BH17EZ Insertion of Endotracheal Airway into Trachea, Via Natural or Artificial Opening (ICD-10-PCS; 2020-05-29)
PROC: 5A12012 Performance of Cardiac Output, Single, Manual (ICD-10-PCS; 2020-06-13)
DX: A41.89 Other specified sepsis (principal); U07.1 COVID-19; J96.01 Acute respiratory failure with hypoxia; J12.89 Other viral pneumonia; I26.99 Other pulmonary embolism without acute cor pulmonale; R65.21 Severe sepsis with septic shock; I50.43 Acute on chronic combined systolic (congestive) and diastolic (congestive) heart failure; D68.59 Other primary thrombophilia; E87.2 Acidosis; I47.2 Ventricular tachycardia; I48.92 Unspecified atrial flutter; Z68.41 Body mass index [BMI] 40.0-44.9, adult; Z99.11 Dependence on respirator [ventilator] status; E11.65 Type 2 diabetes mellitus with hyperglycemia; E66.01 Morbid (severe) obesity due to excess calories; D64.9 Anemia, unspecified; D69.6 Thrombocytopenia, unspecified; D72.810 Lymphocytopenia; E87.5 Hyperkalemia; I11.0 Hypertensive heart disease with heart failure; G47.33 Obstructive sleep apnea (adult) (pediatric); R00.1 Bradycardia, unspecified; R31.9 Hematuria, unspecified; Z86.711 Personal history of pulmonary embolism; Z79.01 Long term (current) use of anticoagulants; Z79.899 Other long term (current) drug therapy
CPT/HCPCS: 36415; 36600; 71045; 71275; 76937; 80048; 80053; 80076; 80202; 80305; 81003; 82375; 82550; 82728; 82805; 82962; 83036; 83605; 83615; 83735; 83880; 84100; 84145; 84439; 84443; 84478; 84484; 85025; 85379; 86140; 86850; 86900; 87070; 93005; 93970; 94002; 94003; 94640; 94660; 99291; C1725; J0278; J0456; J0692; J0696; J1100; J1200; J1265; J1650; J1815; J1940; J2060; J2185; J2250; J2370; J2405; J2543; J2704; J2765; J3010; J3370; J3490; J7030; J7050; J7060; J7070; J8540; Q9957; Q9967; U0003-CS